=== PATIENT | female | born 1970 | race Caucasian/White ===

== ENCOUNTER 2025-01-06 15:06 | Outpatient (CLI) | payer BC, SELFPAY ==
--- NOTE | ~2025-01-06 | MR_ITS ---
MRI of the right ankle Clinical history: Ligament sprain Technique: Coronal proton-density and proton-density fat-sat images, axial proton-density and proton- density fat-sat images, and sagittal proton-density and proton-density fat-sat images were acquired. Findings: Syndesmotic ligaments are intact. Anterior and posterior talofibular ligaments, and calcane ofibular ligament are intact. Deltoid ligament is intact. Medial flexor tendons, peroneal tendons, anterior extensor tendons, and Achilles tendon are intact. T here is mild tenosynovitis of the distal tibialis posterior tendon sheath. There is no osteochondral lesion of the talar dome. Joint spaces and bone marrow signals are essentia lly unremarkable. Small tibiotalar and subtalar joint effusions are present. Plantar fascia intact. N o other soft tissue mass or fluid collection evident. Impression: Mild tibialis posterior tenosynovitis. Small tibiotalar and subtalar joint effusions. No other significant findings. Reviewed, dictated and finalized at location . Impression: Mild tibialis posterior tenosynovitis. Small tibiotalar and subtalar joint effusions. No other significant findings.
== END 2025-01-06 15:07 | disposition home or self-care (01) ==
PROVIDERS: PCP Podiatrist Foot & Ankle Surgery; Visit Provider Podiatrist Foot & Ankle Surgery
DX: S93.491D Sprain of other ligament of right ankle, subsequent encounter (principal); M77.51 Other enthesopathy of right foot and ankle; M66.371 Spontaneous rupture of flexor tendons, right ankle and foot; X58.XXXD Exposure to other specified factors, subsequent encounter; M25.471 Effusion, right ankle
CPT/HCPCS: 73721

== ENCOUNTER 2025-07-07 08:05 | Outpatient (CLI) | payer BC, SELFPAY ==
--- NOTE | ~2025-07-07 | DEXA_ITS ---
Bone Density Report Name: MARIA ESTHER ORONA Age: 55 Sex: Female Ethnicity: White Date of : 1970 Indication: postmenopausal; screening for osteoporosis; Referring Provider: Yann, Yonatan Study: Bone densitometry was performed. Exam Date: July 07, 2025 Accession number: [id number] Bone Density: Region BMD T-score Z-score Classification AP Spine(L1-L4) 1.040 -0.1 0.9 Normal Femoral Neck (Left) 0.798 -0.5 0.5 Normal Total Hip (Left) 0.857 -0.7 -0.1 Normal Femoral Neck (Right) 0.843 0.0 0.9 Normal Total Hip (Right) 0.967 0.2 0.8 Normal Total Hip Mean 0.912 -0.3 0.4 Normal World Health Organization criteria for BMD impression classify patients as: Normal (T-score at or above -1.0), Osteopenia (T-score between -1.0 and -2.5), or Osteoporosis (T-score at or below -2.5). 10-year Fracture Risk: FRAX not reported because: All T-scores for Spine Total, Hip Total, Femoral Neck at or above -1.0 Clinical Information Provided by Patient: Has used the following medications: Vitamin D, Calcium Patient maximum height was 67 Menopause Age: 52 Drinks caffeinated beverages Onset of menses at age 15 Number of children 1 Impression: The patient has normal bone mass. Discussion: BONE DENSITY IS ABOVE THE MINIMUM DESIRABLE LEVEL AT ALL SKELETAL SITES TESTED. This patient?s bone mineral density is above the minimum desirable level (T-score -1.0 or better) at all sites measured. The patient should follow a healthful lifestyle (good nutrition with adequate calcium and vitamin D, and appropriate weight-bearing exercise). Follow-Up: Consider repeating this study in 5 years or sooner if there is some new clinical indication. Reported by: NICHOLAS on 07/07/2025 8:49:00 AM. Reviewed, dictated and finalized at location A.
== END 2025-07-07 08:06 | disposition home or self-care (01) ==
PROVIDERS: PCP Internal Medicine; Visit Provider Internal Medicine
DX: Z78.0 Asymptomatic menopausal state (principal)
CPT/HCPCS: 77080